=== PATIENT | male | born 1960 | race Caucasian/White ===

== ENCOUNTER → 2017-01-22 | Outpatient (CLI) | payer OTHER ==
[2017-01-22 08:28] LABS: ALANINE AMINOTRANSFERASE 37 U/L (21-72); ALBUMIN 4.6 g/dL (3.5-5.0); ALKALINE PHOSPHATASE 42 U/L (38-126); ASPARTATE AMINO TRANSFERASE 37 U/L (17-59); BILIRUBIN,DIRECT 0.1 mg/dL (0.0-0.4); BILIRUBIN,TOTAL 0.4 mg/dL (0.2-1.3); CHOLESTEROL 165.77 mg/dL (0-200); Direct HDL 72 mg/dL (>40); TOTAL PROTEIN 7.1 g/dL (6.3-8.2); TRIGLYCERIDES 71 mg/dL (<150)
[2017-01-22 08:39] LABS: DIRECT LDL 76 mg/dL (<100)
== END ==
LOC: OD 07:09
PROVIDERS: ATTEND Internal Medicine Cardiovascular Disease
DX: E78.00 Pure hypercholesterolemia, unspecified (principal); Z79.899 Other long term (current) drug therapy
CPT/HCPCS: 36415; 80061; 80076

== ENCOUNTER → 2018-01-12 | Outpatient (CLI) | payer OTHER | LOC: LAB 16:22 | PROVIDERS: ATTEND Internal Medicine Cardiovascular Disease | DX: I49.3 Ventricular premature depolarization (principal) | CPT/HCPCS: 36415; 83735 ==

== ENCOUNTER → 2018-09-17 | Outpatient (CLI) | payer OTHER ==
[2018-09-17 06:55] LABS: ALBUMIN 4.3 g/dL (3.5-5.0); ALKALINE PHOSPHATASE 39 U/L (38-126); ASPARTATE AMINO TRANSFERASE 28 U/L (17-59); BILIRUBIN,DIRECT 0.1 mg/dL (0.0-0.4); BILIRUBIN,TOTAL 0.6 mg/dL (0.2-1.3); CHOLESTEROL 153.33 mg/dL (0-200); TOTAL PROTEIN 6.6 g/dL (6.3-8.2); TRIGLYCERIDES 55 mg/dL (<150)
[2018-09-17 07:06] LABS: DIRECT LDL 87 mg/dL (<100)
== END ==
LOC: LAB 06:25
PROVIDERS: ATTEND Internal Medicine Cardiovascular Disease
DX: E78.00 Pure hypercholesterolemia, unspecified (principal); Z79.899 Other long term (current) drug therapy
CPT/HCPCS: 36415; 80061; 80076

== ENCOUNTER → 2019-09-01 | Outpatient (CLI) | payer OTHER ==
[2019-09-01 08:17] LABS: CHOLESTEROL 156.53 mg/dL (0-200); TRIGLYCERIDES 61 mg/dL (<150)
[2019-09-01 08:28] LABS: DIRECT LDL 70 mg/dL (<100)
== END ==
LOC: OD 07:09
PROVIDERS: ATTEND Internal Medicine Cardiovascular Disease
DX: E78.00 Pure hypercholesterolemia, unspecified (principal)
CPT/HCPCS: 36415; 80061